=== PATIENT | male | born 1970 | race Caucasian/White ===

== ENCOUNTER 2019-07-02 17:23 | Outpatient (REF) | payer BC, SELFPAY ==
[2019-07-02 21:34] LABS: Calculated LDL 115 mg/dL; Cholesterol 181 mg/dL (<200); HDL Cholesterol 58 mg/dL (40-60); Triglyceride 43 mg/dL (<150)
== END 2019-07-02 17:43 ==
LOC: NCHCN 17:23
PROVIDERS: PCP Internal Medicine; Visit Provider Internal Medicine
DX: Z00.00 Encounter for general adult medical examination without abnormal findings (principal); Z13.220 Encounter for screening for lipoid disorders
CPT/HCPCS: 80061

== ENCOUNTER 2023-05-27 15:06 | Outpatient (REF) | payer BC, SELFPAY | END 2023-05-27 15:07 | disposition home or self-care (01) | LOC: NCHCN 15:06 | PROVIDERS: PCP Internal Medicine; Visit Provider Family Medicine | DX: R30.0 Dysuria (principal); B96.20 Unspecified Escherichia coli [E. coli] as the cause of diseases classified elsewhere | CPT/HCPCS: 87077; 87086; 87186 ==

== ENCOUNTER 2025-03-05 13:04 | Outpatient (REF) | payer BC, SELFPAY ==
[2025-03-05 15:07] LABS: Abs Immature Grans 0.01 10^3/uL (0.0-0.06); HCT 45.1 % (40.0-50.0); HGB 15.3 g/dL (13.5-17.5); Immature Grans % 0.2 %; MCH 29.7 pg (27.0-33.0); MCHC 33.9 % (32.0-36.0); MCV 87 fL (80-95); MPV 10.7 fL (8.0-11.0); Platelet Count 233 10^3/uL (130-400); RBC 5.16 10^6/uL (4.36-5.78); RDW 12.6 % (11.8-14.1); RDW-SD 40.4 fL; WBC 5.96 10^3/uL (4.4-10.8)
[2025-03-05 15:10] LABS: ESR 6 mm/hr (0-20)
== END 2025-03-05 13:05 | disposition home or self-care (01) ==
LOC: NCHCN 13:04
PROVIDERS: PCP Internal Medicine; Visit Provider Physician Assistant
DX: L65.9 Nonscarring hair loss, unspecified (principal)
CPT/HCPCS: 84403; 85652; 85025; 86038